=== PATIENT | male | born 1995 | race Caucasian/White ===

== ENCOUNTER 2017-03-24 15:56 | Emergency (ER) | payer SELFPAY ==
[2017-03-24 15:57] VITALS: BP 144/77; PULSE 108; RESP 28; TEMP 98.4; O2SAT 100
[2017-03-24] MEDS ORDERED: SODIUM CHLOR 0.9% 1000 ML INJ 1,000 ML IV ONE (17:15)
--- NOTE | 2017-03-24 17:18 | PD ---
HPI Chief Complaint: General Weakness Time Seen by Provider: 16:49 Travel History International Travel<30 days: No Contact w/Intl Traveler<30days: No Traveled to known affect area: No History of Present Illness HPI The patient is a 21-year-old male who presents emergency department for palpitations, lightheadedness, paresthesias, and chest pain. The patient states he drank 20 ounces of espresso coffee this morning and then had an energy sports drink. Patient was at work earlier today when he developed palpitations and then felt like he had numbness and tingling from the neck all the way down to the toes. He then complained of some chest pain on the right side which she described as pressure radiating to the back. The patient also states he felt somewhat lightheaded and dizzy, states his symptoms have improved. He does state upon arrival his heart rate was in the low 100s. He denies any acute shortness of breath, nausea, vomiting, or abdominal pain. He denies any illicit drug use or alcohol use. Symptoms are moderate, possibly exacerbated by caffeine, and there are no current alleviating factors. [facility] Past Medical History Medical History: Denies Significant Hx Past Surgical History Surgical History: No Previous Surgery Social History Alcohol Use: Yes (OCC) Tobacco Use: No Substance Use: No Allergies-Medications (Allergen,Severity, Reaction): Coded Allergies: Penicillins (Verified Allergy, Unknown, 03/24/17) tree nut (Verified Allergy, Unknown, 03/24/17) Reported Meds & Prescriptions Reported Meds & Active Scripts Active No Active Prescriptions or Reported Medications Review of Systems Except as stated in HPI: all other systems reviewed are Neg General / Constitutional: No: Fever HENT: Positive: Lightheadedness Cardiovascular: Positive: Palpitations, Tachycardia, No: Chest Pain or Discomfort, Irregular Rhythm Respiratory: No: Shortness of Breath Gastrointestinal: No: Nausea, Vomiting, Abdominal Pain Genitourinary: No: Dysuria Musculoskeletal: No: Weakness Neurologic: Positive: Dizziness, Paresthesia, Sensory Disturbance, No: Focal Abnormalities, Headache, Change in Mentation Physical Exam Narrative GENERAL: Awake, alert, pleasant 21-year-old male who appears his stated age and is in no acute respiratory distress. SKIN: Focused skin assessment warm/dry. HEAD: Atraumatic. Normocephalic. EYES: Pupils equal and round. No scleral icterus. No injection or drainage. ENT: No nasal bleeding or discharge. Mucous membranes pink and moist. NECK: Trachea midline. No JVD. CARDIOVASCULAR: Regular, tachycardic with a heart rate of 100. RESPIRATORY: No accessory muscle use. Clear to auscultation. Breath sounds equal bilaterally. GASTROINTESTINAL: Abdomen soft, non-tender, nondistended. MUSCULOSKELETAL: No obvious deformities. No clubbing. No cyanosis. No edema. NEUROLOGICAL: Awake and alert. No obvious cranial nerve deficits. Motor grossly within normal limits. Normal speech. Nonfocal. Oriented 4. Follows commands without difficulty. PSYCHIATRIC: Appropriate mood and affect; insight and judgment normal. Data Data Last Documented VS Vital Signs Date Time Temp Pulse Resp B/P (MAP) Pulse Ox O2 Delivery O2 Flow Rate FiO2 03/24/17 15:57 98.4 108 28 144/77 (99) 100 Orders Orders Electrocardiogram (03/24/17 ) Complete Blood Count With Diff (03/24/17 17:06) Comprehensive Metabolic Panel (03/24/17 17:06) Creatine Kinase (Cpk) (03/24/17 17:06) Troponin I (03/24/17 17:06) Magnesium (Mg) (03/24/17 17:06) Sodium Chlor 0.9% 1000 Ml Inj (Ns 1000 M (03/24/17 17:15) Labs Laboratory Tests Test 03/24/17 18:05 White Blood Count 12.9 TH/MM3 Red Blood Count 5.52 MIL/MM3 Hemoglobin 15.4 GM/DL Hematocrit 44.8 % Mean Corpuscular Volume 81.2 FL Mean Corpuscular Hemoglobin 28.0 PG Mean Corpuscular Hemoglobin Concent 34.4 % Red Cell Distribution Width 14.2 % Platelet Count 240 TH/MM3 Mean Platelet Volume 8.5 FL Neutrophils (%) (Auto) 80.1 % Lymphocytes (%) (Auto) 14.9 % Monocytes (%) (Auto) 4.6 % Eosinophils (%) (Auto) 0.1 % Basophils (%) (Auto) 0.3 % Neutrophils # (Auto) 10.4 TH/MM3 Lymphocytes # (Auto) 1.9 TH/MM3 Monocytes # (Auto) 0.6 TH/MM3 Eosinophils # (Auto) 0.0 TH/MM3 Basophils # (Auto) 0.0 TH/MM3 CBC Comment DIFF FINAL Differential Comment Blood Urea Nitrogen 9 MG/DL Creatinine 1.19 MG/DL Random Glucose 85 MG/DL Total Protein 8.6 GM/DL Albumin 4.4 GM/DL Calcium Level 8.7 MG/DL Magnesium Level 1.7 MG/DL Alkaline Phosphatase 45 U/L Aspartate Amino Transf (AST/SGOT) 32 U/L Alanine Aminotransferase (ALT/SGPT) 43 U/L Total Bilirubin 0.6 MG/DL Sodium Level 136 MEQ/L Potassium Level 3.6 MEQ/L Chloride Level 102 MEQ/L Carbon Dioxide Level 25.3 MEQ/L Anion Gap 9 MEQ/L Estimat Glomerular Filtration Rate 77 ML/MIN Total Creatine Kinase 202 U/L Troponin I LESS THAN 0.02 NG/ML MDM Medical Decision Making Medical Screen Exam Complete: Yes Emergency Medical Condition: Yes Medical Record Reviewed: Yes Interpretation(s) EKG reveals sinus tachycardia with a heart rate of 103. Nonspecific T wave changes. QTC 405 ms. Repeat EKG reveals sinus rhythm with sinus arrhythmia with a rate of 79. No ischemic changes noted. Laboratory Tests Test 03/24/17 18:05 White Blood Count 12.9 TH/MM3 Red Blood Count 5.52 MIL/MM3 Hemoglobin 15.4 GM/DL Hematocrit 44.8 % Mean Corpuscular Volume 81.2 FL Mean Corpuscular Hemoglobin 28.0 PG Mean Corpuscular Hemoglobin Concent 34.4 % Red Cell Distribution Width 14.2 % Platelet Count 240 TH/MM3 Mean Platelet Volume 8.5 FL Neutrophils (%) (Auto) 80.1 % Lymphocytes (%) (Auto) 14.9 % Monocytes (%) (Auto) 4.6 % Eosinophils (%) (Auto) 0.1 % Basophils (%) (Auto) 0.3 % Neutrophils # (Auto) 10.4 TH/MM3 Lymphocytes # (Auto) 1.9 TH/MM3 Monocytes # (Auto) 0.6 TH/MM3 Eosinophils # (Auto) 0.0 TH/MM3 Basophils # (Auto) 0.0 TH/MM3 CBC Comment DIFF FINAL Differential Comment Blood Urea Nitrogen 9 MG/DL Creatinine 1.19 MG/DL Random Glucose 85 MG/DL Total Protein 8.6 GM/DL Albumin 4.4 GM/DL Calcium Level 8.7 MG/DL Magnesium Level 1.7 MG/DL Alkaline Phosphatase 45 U/L Aspartate Amino Transf (AST/SGOT) 32 U/L Alanine Aminotransferase (ALT/SGPT) 43 U/L Total Bilirubin 0.6 MG/DL Sodium Level 136 MEQ/L Potassium Level 3.6 MEQ/L Chloride Level 102 MEQ/L Carbon Dioxide Level 25.3 MEQ/L Anion Gap 9 MEQ/L Estimat Glomerular Filtration Rate 77 ML/MIN Total Creatine Kinase 202 U/L Troponin I LESS THAN 0.02 NG/ML Differential Diagnosis Differential diagnosis includes caffeine toxicity, caffeine side effect, anxiety , hypocalcemia, hypercalcemia, hypokalemia, hyperkalemia, hypomagnesemia, hypomagnesemia, dehydration, somatization. Narrative Course IV was established, labs are drawn and sent, and the patient was placed on cardiac telemetry monitoring and continuous pulse oximetry monitoring. EKG was ordered and interpreted. The patient was administered 1 L of IV fluids. Electrolytes, CPK, troponin were sent to lab. Labs are unremarkable. CPK and troponin are negative. The patient is advised to limit his caffeine intake. He is stable for outpatient follow-up. Diagnosis Primary Impression: Caffeine adverse reaction Qualified Codes: T43.615A - Adverse effect of caffeine, initial encounter Patient Instructions: General Instructions Additional Instructions: Decrease caffeine intake. Please provide a patient a copy of his labs at discharge. Follow-up with your primary physician. Return if symptoms worsen or progress. Scripts No Active Prescriptions or Reported Meds Disposition: 01 DISCHARGE HOME Condition: Stable David Gatica MD Mar 24, 2017 17:18
[2017-03-24 18:41] LABS: AUTOMATED NEUTROPHIL # 10.4 TH/MM3 (1.8-7.7); BASOPHIL % 0.3 % (0.0-2.0); EOSINOPHIL % 0.1 % (0.0-4.0); HEMATOCRIT 44.8 % (39.0-51.0); HEMO FLAGS DIFF FINAL; LYMPH % 14.9 % (9.0-44.0); LYMPHOCYTE # 1.9 TH/MM3 (1.0-4.8); MEAN CELL VOLUME 81.2 FL (80.0-100.0); MEAN CORPUSCULAR HGB CONC 34.4 % (32.0-36.0); MONO % 4.6 % (0.0-8.0); NEUT % 80.1 % (16.0-70.0); PLATELET COUNT 240 TH/MM3 (150-450); RED BLOOD COUNT 5.52 MIL/MM3 (4.50-5.90); RED CELL DISTRIBUTION WIDTH 14.2 % (11.6-17.2); WHITE BLOOD COUNT 12.9 TH/MM3 (4.0-11.0)
[2017-03-24 18:58] LABS: ANION GAP 9 MEQ/L (5-15); AST (GOT) 32 U/L (15-37); BICARBONATE 25.3 MEQ/L (21.0-32.0); BLOOD UREA NITROGEN 9 MG/DL (7-18); CHLORIDE 102 MEQ/L (98-107); GLOMERULAR FILTRATION RATE 77 ML/MIN (>89); MAGNESIUM 1.7 MG/DL (1.5-2.5); POTASSIUM 3.6 MEQ/L (3.5-5.1); SODIUM (NA) 136 MEQ/L (136-145)
[2017-03-24 18:59] LABS: ALT (GPT) 43 U/L (12-78)
[2017-03-24 19:03] LABS: ALKALINE PHOSPHATASE 45 U/L (45-117); CREATINE KINASE 202 U/L (39-308); TOTAL BILIRUBIN ADULT 0.6 MG/DL (0.2-1.0)
[2017-03-24 19:27] VITALS: BP 155/96; PULSE 88; RESP 16; O2SAT 100
--- NOTE | 2017-03-25 13:40 | EKG ---
Date Performed: 03/24/2017 Time Performed: 16:25:51 PTAGE: 21 years EKG: SINUS TACHYCARDIA POSSIBLE LEFT ATRIAL ENLARGEMENT MODERATE INTRAVENTRICULAR CONDUCTION DEL AY NONSPECIFIC T-WAVE ABNORMALITY ABNORMAL RHYTHM ECG NO PREVIOUS TRACING DOCTOR: Martha Gillis Interpretating Date/Time 03/25/2017 13:39:45
--- NOTE | 2017-03-25 13:58 | EKG ---
Date Performed: 03/24/2017 Time Performed: 17:55:40 PTAGE: 21 years EKG: Sinus rhythm WITH SINUS ARRHYTHMIA NORMAL ECG Compared to prior tracing no significant change PREVIOUS TRACING : 03/24/2017 16.25 DOCTOR: Martha Gillis Interpretating Date/Time 04/02/2017 07:02:06
== END 2017-03-24 19:55 | disposition home or self-care (01) ==
LOC: NEPC 15:56 → EDBD 15:56 → NEPC 19:55
DX: T43.615A Adverse effect of caffeine, initial encounter (principal); R00.0 Tachycardia, unspecified; R42 Dizziness and giddiness; R20.0 Anesthesia of skin; R20.2 Paresthesia of skin; R94.31 Abnormal electrocardiogram [ECG] [EKG]; I49.8 Other specified cardiac arrhythmias; Z88.0 Allergy status to penicillin
CPT/HCPCS: 80053; 82550; 83735; 84484; 85025; 93005; 99284; J7030